=== PATIENT | female | born 1965 | race Caucasian/White ===

== ENCOUNTER 2016-12-19 22:44 | Inpatient (IN) | payer OTHER ==
[~2016-12-19] VITALS: Ht 162.6 cm; Wt 65.2 kg
[2016-12-19] MEDS ORDERED: DIPHTH/TETANUS/ACEL PERTUSSIS (BOOSTER) 0.5 ML VIAL/PFS IM ONE (22:49)
[2016-12-19] MEDS ORDERED: ceFAZolin 2 GM PREMIX 50 ML ONE (22:50)
[2016-12-19 22:55] VITALS: O2SAT 100
[2016-12-19 23:17] LABS: AUTOMATED NEUTROPHIL # 7.4 TH/MM3 (1.8-7.7); BASOPHIL % 0.2 % (0.0-2.0); EOSINOPHIL # 0.1 TH/MM3 (0-0.4); HEMATOCRIT 33.9 % (35.0-46.0); HEMO FLAGS DIFF FINAL; I-STAT POTASSIUM 3.3 MMOL/L (3.5-4.9); LYMPH % 27.4 % (9.0-44.0); MEAN CELL VOLUME 86.5 FL (80.0-100.0); MEAN CORPUSCULAR HEMOGLOBIN 28.9 PG (27.0-34.0); MEAN CORPUSCULAR HGB CONC 33.4 % (32.0-36.0); MONO % 3.4 % (0.0-8.0); PLATELET COUNT 133 TH/MM3 (150-450); RED BLOOD COUNT 3.92 MIL/MM3 (4.00-5.30); RED CELL DISTRIBUTION WIDTH 12.3 % (11.6-17.2); WHITE BLOOD COUNT 10.9 TH/MM3 (4.0-11.0)
[2016-12-19] MEDS ORDERED: ONDANSETRON HCL 4 MG/2 ML VIAL ONE (23:23)
[2016-12-19] MEDS ORDERED: MORPHINE SULFATE 8 MG/ML INJ ONE (23:23)
[2016-12-19 23:29] LABS: APTT (PATIENT) 24.8 SEC (24.3-30.1); PROTHROMBIN TIME - PATIENT 10.8 SEC (9.8-11.6)
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
[2016-12-19] MEDS ORDERED: IOHEXOL 350 MG/ML 10 ML VIAL (for RAD DIAG) IV ONE (23:39)
[2016-12-19] MEDS: SODIUM CHLOR 0.9% 1000 ML INJ 1,000 ML IV SCH (23:40)
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
[2016-12-19 23:45] VITALS: BP 111/78; PULSE 82; RESP 21; TEMP 98.2; O2SAT 100
[2016-12-19] MEDS ORDERED: NALOXONE HCL 0.4 MG/ML AMP IV PRN (23:45)
[2016-12-19] MEDS ORDERED: Post-op Orders (for Pharmacy) MISC XX ONE (23:45)
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
[2016-12-20] VITALS (10 sets, daily range): BP systolic 90–116; BP diastolic 50–77; PULSE 55–87; RESP 15–27; TEMP 96.3–100.2; O2SAT 97–100
[2016-12-20] MEDS ORDERED: oxyCODONE/ACETAMINOPHEN 5 MG/325 MG TAB PO PRN (00:30)
[2016-12-20] MEDS: PANTOPRAZOLE SOD 40 MG DELAYED RELEASE TAB PO SCH ×3 (01:35→23:52)
[2016-12-20] MEDS: MORPHINE SULFATE 4 MG/ML INJ IV PRN ×7 (02:49→23:52)
[2016-12-20 04:39] LABS: AUTOMATED NEUTROPHIL # 7.7 TH/MM3 (1.8-7.7); BASOPHIL % 0.1 % (0.0-2.0); EOSINOPHIL % 0.1 % (0.0-4.0); HEMATOCRIT 29.7 % (35.0-46.0); HEMO FLAGS DIFF FINAL; LYMPH % 4.3 % (9.0-44.0); LYMPHOCYTE # 0.4 TH/MM3 (1.0-4.8); MEAN CELL VOLUME 86.2 FL (80.0-100.0); MEAN CORPUSCULAR HEMOGLOBIN 29.9 PG (27.0-34.0); MEAN CORPUSCULAR HGB CONC 34.7 % (32.0-36.0); MONO % 7.1 % (0.0-8.0); NEUT % 88.4 % (16.0-70.0); PLATELET COUNT 100 TH/MM3 (150-450); RED BLOOD COUNT 3.45 MIL/MM3 (4.00-5.30); RED CELL DISTRIBUTION WIDTH 12.4 % (11.6-17.2); WHITE BLOOD COUNT 8.7 TH/MM3 (4.0-11.0)
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
[2016-12-20 05:09] LABS: BICARBONATE 25.8 MEQ/L (21.0-32.0); POTASSIUM 3.8 MEQ/L (3.5-5.1)
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
[2016-12-20] MEDS: SODIUM CHLORIDE 0.9% FLUSH 10 ML FLUSH IV FLUSH SCH ×2 (09:00→21:40)
[2016-12-20] MEDS: DOCUSATE SODIUM 100 MG CAP PO SCH ×2 (09:00→21:39)
[2016-12-20] MEDS: KETOROLAC TROMETHAMINE 30 MG/ML (IVP) VIAL IV PUSH SCH ×3 (10:17→23:52)
[2016-12-20] MEDS: ONDANSETRON HCL 4 MG/2 ML VIAL IV PRN ×2 (10:19→15:28)
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
[2016-12-20] MEDS: SODIUM CHLOR 0.9% 1000 ML INJ 1,000 ML IV SCH ×2 (15:29→22:11)
[2016-12-20] MEDS: MAGNESIUM HYDROXIDE SUSP 30 ML CUP PO SCH (21:39)
[2016-12-21] VITALS (9 sets, daily range): BP systolic 85–118; BP diastolic 41–62; PULSE 65–85; RESP 15–18; TEMP 97.2–99.1; O2SAT 97–100
[2016-12-21] MEDS: KETOROLAC TROMETHAMINE 30 MG/ML (IVP) VIAL IV PUSH SCH ×2 (04:21→11:59)
[2016-12-21] MEDS: MORPHINE SULFATE 4 MG/ML INJ IV PRN ×2 (04:22→21:44)
--- NOTE | 2016-12-21 06:34 | RADRPT ---
EXAM DATE/TIME: 12/21/2016 04:33 [facility] COMPARISON: CHEST SINGLE AP, December 19, 2016, 22:57. INDICATIONS : Chest pain. MEDICAL HISTORY : None. SURGICAL HISTORY : None. ENCOUNTER: Initial ACUITY: 2 days PAIN SCORE: 4/10 LOCATION: Bilateral chest FINDINGS: A single view of the chest demonstrates the lungs to be symmetrically aerated without evidence of mas s, infiltrate or effusion. The cardiomediastinal contours are unremarkable. Osseous structures are intact. CONCLUSION: No acute disease. Christian Bustamante MD on December 21, 2016 at 6:32 Board Certified Radiologist. This report was verified electronically.
[2016-12-21] MEDS: SODIUM CHLORIDE 0.9% FLUSH 10 ML FLUSH IV FLUSH SCH ×2 (09:00→19:50)
[2016-12-21 09:54] LABS: AUTOMATED NEUTROPHIL # 1.9 TH/MM3 (1.8-7.7); BASOPHIL % 0.3 % (0.0-2.0); EOSINOPHIL % 1.7 % (0.0-4.0); LYMPH % 24.5 % (9.0-44.0); LYMPHOCYTE # 0.7 TH/MM3 (1.0-4.8); MEAN CELL VOLUME 86.4 FL (80.0-100.0); MEAN CORPUSCULAR HEMOGLOBIN 29.7 PG (27.0-34.0); MEAN CORPUSCULAR HGB CONC 34.4 % (32.0-36.0); MONO % 8.1 % (0.0-8.0); NEUT % 65.4 % (16.0-70.0); PLATELET COUNT 65 TH/MM3 (150-450); RED BLOOD COUNT 2.66 MIL/MM3 (4.00-5.30); RED CELL DISTRIBUTION WIDTH 12.4 % (11.6-17.2)
[2016-12-21] MEDS: DOCUSATE SODIUM 100 MG CAP PO SCH ×2 (09:54→19:51)
[2016-12-21] MEDS: LACTULOSE SYRUP 20 GM/30 ML CUP PO SCH (09:54)
[2016-12-21 09:56] LABS: HEMO FLAGS AUTO DIFF
[2016-12-21] MEDS: SODIUM CHLOR 0.9% 1000 ML INJ 1,000 ML IV SCH (10:41)
[2016-12-21 10:42] LABS: ALKALINE PHOSPHATASE 78 U/L (45-117); ALT (GPT) 76 U/L (10-53); ANION GAP 5 MEQ/L (5-15); AST (GOT) 57 U/L (15-37); BLOOD UREA NITROGEN 14 MG/DL (7-18); CHLORIDE 110 MEQ/L (98-107); GLOMERULAR FILTRATION RATE 136 ML/MIN (>89); POTASSIUM 3.9 MEQ/L (3.5-5.1); SODIUM (NA) 143 MEQ/L (136-145); TOTAL BILIRUBIN ADULT 0.5 MG/DL (0.2-1.0)
[2016-12-21 10:52] LABS: PLATELET ESTIMATE SMEAR LOW (NORMAL); PLATELET MORPHOLOGY NORMAL (NORMAL); SCAN/DIFF AUTO DIFF CONFIRMED
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
[2016-12-21] MEDS ORDERED: ENOXAPARIN SODIUM 30 MG/0.3 ML SYRINGE SQ SCH (12:30)
[2016-12-21] MEDS ORDERED: ACETAMINOPHEN 325 MG TAB PO PRN (13:00)
[2016-12-21] MEDS: ACETAMINOPHEN 325 MG TAB PO PRN ×2 (14:43→21:08)
[2016-12-21 17:58] LABS: HEMATOCRIT 22.8 % (35.0-46.0)
[2016-12-21 18:02] LABS: REVIEW FLAG FINAL
[2016-12-21] MEDS: MAGNESIUM HYDROXIDE SUSP 30 ML CUP PO SCH (19:51)
[2016-12-21] MEDS: PANTOPRAZOLE SOD 40 MG DELAYED RELEASE TAB PO SCH (23:36)
[2016-12-22] MEDS: MORPHINE SULFATE 4 MG/ML INJ IV PRN ×3 (02:24→17:06)
[2016-12-22 04:12] VITALS: BP 116/66; PULSE 79; RESP 18; TEMP 97; O2SAT 98
[2016-12-22] MEDS: ACETAMINOPHEN 325 MG TAB PO PRN ×2 (05:26→20:41)
[2016-12-22 06:18] LABS: AUTOMATED NEUTROPHIL # 2.2 TH/MM3 (1.8-7.7); BASOPHIL % 0.6 % (0.0-2.0); EOSINOPHIL # 0.1 TH/MM3 (0-0.4); EOSINOPHIL % 3.5 % (0.0-4.0); HEMATOCRIT 23.5 % (35.0-46.0); LYMPH % 22.3 % (9.0-44.0); LYMPHOCYTE # 0.8 TH/MM3 (1.0-4.8); MEAN CELL VOLUME 87.4 FL (80.0-100.0); MEAN CORPUSCULAR HGB CONC 33.2 % (32.0-36.0); MONO % 7.7 % (0.0-8.0); NEUT % 65.9 % (16.0-70.0); PLATELET COUNT 73 TH/MM3 (150-450); RED BLOOD COUNT 2.69 MIL/MM3 (4.00-5.30); RED CELL DISTRIBUTION WIDTH 12.6 % (11.6-17.2); WHITE BLOOD COUNT 3.4 TH/MM3 (4.0-11.0)
[2016-12-22 06:22] LABS: HEMO FLAGS AUTO DIFF
[2016-12-22 08:00] VITALS: BP 134/69; PULSE 71; RESP 20; TEMP 97.5; O2SAT 100
[2016-12-22 08:30] LABS: PLATELET ESTIMATE SMEAR LOW (NORMAL); PLATELET MORPHOLOGY NORMAL (NORMAL); SCAN/DIFF AUTO DIFF CONFIRMED
[2016-12-22] MEDS: LACTULOSE SYRUP 20 GM/30 ML CUP PO SCH (09:17)
[2016-12-22] MEDS: DOCUSATE SODIUM 100 MG CAP PO SCH ×2 (09:17→20:40)
[2016-12-22] MEDS: SODIUM CHLORIDE 0.9% FLUSH 10 ML FLUSH IV FLUSH SCH ×2 (09:18→20:42)
[2016-12-22] MEDS: SODIUM CHLORIDE 0.9% FLUSH 10 ML FLUSH IV FLUSH PRN ×3 (09:19→17:05)
[2016-12-22] MEDS: ONDANSETRON HCL 4 MG/2 ML VIAL IV PRN ×2 (09:25→17:05)
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
[2016-12-22 11:50] VITALS: BP 114/75; PULSE 74; RESP 20; TEMP 97.3; O2SAT 100
[2016-12-22] MEDS: ENOXAPARIN SODIUM 40 MG/0.4 ML SYRINGE SQ SCH (12:18)
[2016-12-22 16:00] VITALS: BP 129/71; PULSE 79; RESP 20; TEMP 98.3; O2SAT 99
[2016-12-22 20:10] VITALS: BP 141/70; PULSE 84; RESP 18; TEMP 99; O2SAT 98
[2016-12-22] MEDS: MAGNESIUM HYDROXIDE SUSP 30 ML CUP PO SCH (20:40)
[2016-12-22] MEDS ORDERED: Lactulose Liq PO (22:12)
[2016-12-22] MEDS ORDERED: DOCU1CAP39 PO (22:12)
[2016-12-22] MEDS ORDERED: PROT40TA PO (22:12)
[2016-12-22] MEDS ORDERED: ENOX40P SQ (22:12)
[2016-12-22] MEDS ORDERED: ACET1TAB86 PO (22:12)
[2016-12-22] MEDS ORDERED: MAGN400S PO (22:12)
[2016-12-23] MEDS: PANTOPRAZOLE SOD 40 MG DELAYED RELEASE TAB PO SCH ×2 (00:05→22:52)
[2016-12-23 00:10] VITALS: BP 133/71; PULSE 84; RESP 18; TEMP 98.3; O2SAT 99
[2016-12-23] MEDS: MORPHINE SULFATE 4 MG/ML INJ IV PRN (02:20)
[2016-12-23 04:40] VITALS: BP 142/74; PULSE 79; RESP 18; TEMP 97.8; O2SAT 100
[2016-12-23] MEDS: ACETAMINOPHEN 325 MG TAB PO PRN (04:51)
[2016-12-23 07:04] LABS: AUTOMATED NEUTROPHIL # 2.5 TH/MM3 (1.8-7.7); BASOPHIL % 0.4 % (0.0-2.0); EOSINOPHIL # 0.1 TH/MM3 (0-0.4); EOSINOPHIL % 2.2 % (0.0-4.0); HEMATOCRIT 23.3 % (35.0-46.0); LYMPH % 21.3 % (9.0-44.0); LYMPHOCYTE # 0.8 TH/MM3 (1.0-4.8); MEAN CELL VOLUME 87.1 FL (80.0-100.0); MEAN CORPUSCULAR HEMOGLOBIN 28.6 PG (27.0-34.0); MEAN CORPUSCULAR HGB CONC 32.8 % (32.0-36.0); MONO % 7.1 % (0.0-8.0); PLATELET COUNT 98 TH/MM3 (150-450); RED BLOOD COUNT 2.68 MIL/MM3 (4.00-5.30); RED CELL DISTRIBUTION WIDTH 12.3 % (11.6-17.2); WHITE BLOOD COUNT 3.6 TH/MM3 (4.0-11.0)
[2016-12-23 07:08] LABS: HEMO FLAGS AUTO DIFF
[2016-12-23 07:22] LABS: ANION GAP 6 MEQ/L (5-15); AST (GOT) 43 U/L (15-37); BICARBONATE 28.7 MEQ/L (21.0-32.0); BLOOD UREA NITROGEN 7 MG/DL (7-18); CHLORIDE 110 MEQ/L (98-107); GLOMERULAR FILTRATION RATE 202 ML/MIN (>89); POTASSIUM 3.7 MEQ/L (3.5-5.1); SODIUM (NA) 145 MEQ/L (136-145)
[2016-12-23 07:28] LABS: ALKALINE PHOSPHATASE 71 U/L (45-117); ALT (GPT) 53 U/L (10-53); TOTAL BILIRUBIN ADULT 0.5 MG/DL (0.2-1.0)
[2016-12-23 08:00] VITALS: BP 141/73; PULSE 66; RESP 19; TEMP 98.3; O2SAT 99
[2016-12-23 08:20] LABS: PLATELET ESTIMATE SMEAR LOW (NORMAL); PLATELET MORPHOLOGY NORMAL (NORMAL); SCAN/DIFF AUTO DIFF CONFIRMED
[2016-12-23] MEDS: DOCUSATE SODIUM 100 MG CAP PO SCH ×2 (09:00→21:40)
[2016-12-23] MEDS: SODIUM CHLORIDE 0.9% FLUSH 10 ML FLUSH IV FLUSH SCH ×2 (09:00→21:00)
[2016-12-23] MEDS: LACTULOSE SYRUP 20 GM/30 ML CUP PO SCH (09:00)
[2016-12-23] MEDS ORDERED: oxyCODONE/ACETAMINOPHEN 5 MG/325 MG TAB PO PRN (11:00)
[2016-12-23] MEDS ORDERED: OXYC1TAB63 PO (11:51)
[2016-12-23 12:00] VITALS: BP 137/72; PULSE 60; RESP 15; TEMP 97.7; O2SAT 98
[2016-12-23] MEDS: ENOXAPARIN SODIUM 40 MG/0.4 ML SYRINGE SQ SCH (12:15)
[2016-12-23] MEDS: oxyCODONE/ACETAMINOPHEN 5 MG/325 MG TAB PO PRN (13:02)
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
[2016-12-23 16:00] VITALS: BP 109/54; PULSE 76; RESP 15; TEMP 99.5; O2SAT 97
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
[2016-12-23 20:25] VITALS: BP 99/54; PULSE 87; RESP 17; TEMP 98.4; O2SAT 100
[2016-12-23] MEDS: MAGNESIUM HYDROXIDE SUSP 30 ML CUP PO SCH (21:40)
[2016-12-24 00:50] VITALS: BP 139/85; PULSE 77; RESP 18; TEMP 98.6; O2SAT 99
[2016-12-24] MEDS: oxyCODONE/ACETAMINOPHEN 5 MG/325 MG TAB PO PRN ×3 (01:01→14:23)
[2016-12-24 04:15] VITALS: BP 129/70; PULSE 80; RESP 18; TEMP 98.4; O2SAT 100
[2016-12-24 08:00] VITALS: BP 127/70; PULSE 67; RESP 18; TEMP 98.1; O2SAT 100
[2016-12-24] MEDS: SODIUM CHLORIDE 0.9% FLUSH 10 ML FLUSH IV FLUSH SCH (09:00)
[2016-12-24] MEDS: LACTULOSE SYRUP 20 GM/30 ML CUP PO SCH (09:00)
[2016-12-24] MEDS: DOCUSATE SODIUM 100 MG CAP PO SCH (09:26)
[2016-12-24 12:00] VITALS: BP 140/71; PULSE 62; RESP 18; TEMP 97.5; O2SAT 99
[2016-12-24] MEDS: ENOXAPARIN SODIUM 40 MG/0.4 ML SYRINGE SQ SCH (14:21)
[2016-12-30] MEDS ORDERED: GETGO ROLLING W1 MI1 (14:45)
[2016-12-30] MEDS ORDERED: WHEEMIS3 (14:45)
[2017-01-01] MEDS ORDERED: PANT40TA3 PO (08:33)
[2017-01-01] MEDS ORDERED: SENN1TAB PO (08:33)
== END 2016-12-24 14:51 | DRG 964 ==
LOC: NEPI 22:44 → NEDA 23:34 → EDBD 23:34 → N03A 23:45 → N06A 12-20 12:30
PROVIDERS: ADMIT Surgery; ATTEND Surgery
DX: S32.591A Other specified fracture of right pubis, initial encounter for closed fracture (principal); S32.049A Unspecified fracture of fourth lumbar vertebra, initial encounter for closed fracture; S27.0XXA Traumatic pneumothorax, initial encounter; S32.401A Unspecified fracture of right acetabulum, initial encounter for closed fracture; S32.059A Unspecified fracture of fifth lumbar vertebra, initial encounter for closed fracture; S30.0XXA Contusion of lower back and pelvis, initial encounter; S06.0X9A Concussion with loss of consciousness of unspecified duration, initial encounter; S32.19XA Other fracture of sacrum, initial encounter for closed fracture; S27.321A Contusion of lung, unilateral, initial encounter; S01.01XA Laceration without foreign body of scalp, initial encounter; D64.89 Other specified anemias; S60.221A Contusion of right hand, initial encounter; R41.2 Retrograde amnesia; V03.10XA Pedestrian on foot injured in collision with car, pick-up truck or van in traffic accident, initial encounter; Y93.01 Activity, walking, marching and hiking; Y99.9 Unspecified external cause status; Z72.0 Tobacco use; Y92.410 Unspecified street and highway as the place of occurrence of the external cause; R00.0 Tachycardia, unspecified; S60.222A Contusion of left hand, initial encounter; S90.32XA Contusion of left foot, initial encounter; S90.31XA Contusion of right foot, initial encounter
CPT/HCPCS: 70450; 70486; 71010; 71260; 72125; 72170; 73110; 74177; 80048; 80053; 80307; 82435; 82565; 82947; 84132; 84295; 84520; 85014; 85018; 85025; 85610; 85730; 86850; 86900; 86901; 87641; 90471; 90715; 94150; 96374; 96375; 99291; A0431-QM-SH; A0436-QM-SH; G0390; J0690; J1650; J1885; J2270; J2405; J7030; Q9967